=== PATIENT | male | born 1995 | race Caucasian/White ===

== ENCOUNTER 2017-03-20 17:22 | Emergency (ER) | payer OTHER ==
--- NOTE | 2017-03-20 18:43 | ED NURSING NOTES ---
Clinical Report - Nurses [facility] [address] [place] [address] 03/20/2017 17:23 Patient: STEWART TAYLOR TRIAGE Triage time 1714. Chief Complaint: SEIZURES (multiple episodes) and (Pt arrived having body shakes all over, but was able to answer questions as soon as they stopped, alert and oriented). Alert. No acute distress. VIRA COMA SCORE: [place] Coma Scale: 15- eyes open spontaneously (4); best verbal response- oriented x 4 (5); best motor response- obeys commands (6). --17:32 Ankita Bailon R.N. 17:15 03/20/17. BP: 111/52. HR: 78. RR: 18. O2 saturation: 98%. Temp: 98.1 F. Pain level now: 01/18. Additional comments: pt states has chronic back pain, so it's always there. --17:32 Ankita Bailon R.N. Weight: 75.2 kg stated. Height/Length: 74 inches Per Patient. BMI: 21.3. --17:30 Ankita Bailon R.N. Medications Depakote Oral 500 mg, 3x a day. --17:28 Ankita Bailon R.N. Allergies No Known Drug Allergy. --17:28 Ankita Bailon R.N. History Arrived by EMS. Historian: EMS and patient. Unaccompanied. Primary physician (Dr. Dubose at [place]). ( Pt allegedly had an argument with his girlfriend, and his other friend called 911.). This occurred just prior to arrival and today. No injuries. 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 PAST MEDICAL HX: Seizures. SOCIAL HX: Current some days light tobacco smoker (cigarette)- less than 1/2 a pack per day. Alcohol use; consumes beer occasionally. No drug use. --17:32 Ankita Bailon R.N. PROBLEMS: Back Pain. Autism. Epilepsy. --17:30 Ankita Bailon R.N. ADDITIONAL SURGERIES: no known surgeries. Interventions ID band on patient. To room. --17:32 Ankita Bailon R.N. 17:28 03/20/2017 Site #1 started prior to arrival by EMS via IV in the right antecubital space with an 20g angiocath. Saline lock flushed with 10 mL saline. --17:33 Ankita Bailon R.N. PHYSICAL ASSESSMENT 17:34 03/20/17. GENERAL / NEURO / PSYCH: Alert. Oriented X 4. Appears to be having generalized seizure activity (EMS reported seizure/body shakes lasted about 10 minutes continuously, then stopped and pt was able to talk and be alert). Decreased awareness. --17:34 Ankita Bailon R.N. NURSING PROGRESS NOTES Patient gowned. Reassurance given. Seizure precautions initiated: side rails up x4 and padded, patient in view of nurse's station and call ang in reach. Patient identifiers checked. Call light placed in reach. Bed placed in lowest position. Patient ready for evaluation- chart flagged (ERMD saw pt on arrival to ED). --17:35 Ankita Bailon R.N. <<STRICKEN ENTRY-- 17:44 03/20/2017 Started bag #1 1000 mL IV Fluids IV NS (Saline); at 999 mL/hr via site #1. Confirmed 5 rights. --17:44 Ankita Bailon R.N. --END STRIKE>> Change to Details. --17:59 Ankita Bailon R.N. 17:44 03/20/2017 Started bag #1 1000 IV Fluids IV NS (Saline); at 999 mL/hr via site #1 via IV pump. Confirmed 5 rights. --17:59 Ankita Bailon R.N. 17:47 03/20/2017 Ativan (LORazepam) IVP 1 mg given over 2 minute(s) via site #1. Confirmed 5 rights and sedative warning given to the patient. --17:47 Ankita Bailon R.N. 17:58 03/20/17. The patient is calm and resting quietly and has had no adverse reaction. --17:58 Ankita Bailon R.N. ( Blood sent to lab). --18:07 Ankita Bailon R.N. 18:06 03/20/17. BP: 97/36. HR: 65. RR: 18. O2 saturation: 96%. Pain level now: 0/10. --18:07 Ankita Bailon R.N. 18:38 03/20/17. ( Pt instructed to use urinal, and to give us a urine sample. Urinal within reach.). --18:38 Ankita Bailon R.N. 18:38 03/20/17. BP: 100/36. HR: 63. RR: 16. O2 saturation: 96%. Pain level now: 0/10. --18:39 Ankita Bailon R.N. DISPOSITION / DISCHARGE 19:07 03/20/2017 Site #1 removed upon discharge. Catheter intact. Bandage applied. --19:08 Ankita Bailon R.N. Departure time: 1851. Condition at departure: improved. No learning barriers present. Discharge instructions provided and reviewed with the patient. Reviewed referral to family practice for followup. Verbalized understanding. Written instructions provided. The patient was discharged home and accompanied by supervisor pleating. He left the Emergency Department ambulatory and via private vehicle. System Administrator driving. --19:08 Ankita Bailon R.N. 18:51 03/20/17. BP: 105/49. HR: 62. RR: 16. O2 saturation: 96%. Pain level now: 0/10. --19:08 Ankita Bailon R.N. Locked/Released at 03/20/2017 19:25 by Josiah Powers R.N.
--- NOTE | 2017-03-20 18:43 | ED CLINICAL REPORT ---
Clinical Report - Physicians/Mid Levels [facility] [address] [place] [address] 03/20/2017 17:23 Patient: STEWART TAYLOR Time Seen: 17:20. Arrived- By ambulance. Historian- patient and EMS personnel. HISTORY OF PRESENT ILLNESS Chief Complaint: SHAKING EPISODE. This occurred about 15 minutes ago. Is still seizing (Pt is flopping around on the gurney and when asked to hold still, he complies). Seizure was witnessed. Experienced repeated seizures. No loss of consciousness, focal motor activity, incontinence, apnea noted or confusion post-ictally. No speech difficulty post-ictally, weakness post-ictally, numbness post-ictally or headache post-ictally. Generalized motor activity observed. Not obtunded post-ictally. Did not lose pulse. No injuries noted. Did not recently change anticonvulsant medication or miss recent dose of anticonvulsant. Has not recently been ill. No recent sleep deprivation or alcohol recently. Pt admits to having an argument with his girlfriend just prior to the onset of his symptoms. Similar symptoms previously: Recent medical care: Not recently seen/assessed. REVIEW OF SYSTEMS No fever, chest pain, palpitations, cough or difficulty breathing. No eye irritation, sore throat, abdominal pain, nausea or diarrhea. No black stools, difficulty with urination, skin rash or bloody stools. All systems otherwise negative, except as recorded above. PAST HISTORY Seizures. Psychiatric problems. ( Primary physician (Dr. Dubose at [place])). Autism. Surgeries: No history of previous surgery. Additional Surgeries: no known surgeries. Medications: Depakote Oral 500 mg, 3x a day. Allergies: No Known Drug Allergy. SOCIAL HISTORY Smoker- current status unknown. Occasional alcohol use; consumes beer. No drug use. ADDITIONAL NOTES The nursing notes have been reviewed. PHYSICAL EXAM Vital Signs: 03/20/2017 17:15 BP: 111/52. HR: 78. RR: 18. O2 saturation: 98%. Temp: 98.1 F. Pain level now: 01/18. Appearance: Alert. Patient in severe distress. No odor of alcohol. (Upon presentation, the patient is prone on the gurney lifting his guteal area up and down from the gurney and nonrhythmically striking the gurney with both upper extremities. He is responding to commands and his breathing is rhythmic and stable). Eyes: Pupils equal, round and reactive to light. No nystagmus. Extraocular movements normal. ENT: Normal ENT inspection. TM's normal. Moist mucous membranes. Pharynx normal. Neck: Normal inspection. Neck supple. CVS: Normal heart rate and rhythm. Heart sounds normal. Pulses normal. Respiratory: No respiratory distress. Breath sounds normal. Abdomen: Soft and nontender. Back: Normal inspection. Skin: No cyanosis. Skin warm and dry. Normal skin color. No rash. Normal skin turgor. No pallor or diaphoresis. Extremities: Extremities exhibit normal ROM. No lower extremity edema. Neuro: Oriented X 3. Abnormal mood/affect. Speech normal. Cranial nerves normal (as tested). No motor deficit. No sensory deficit. Reflexes normal. LABS, X-RAYS, AND EKG Laboratory Tests: CBC w Diff: (REN: 03/20/2017 18:05) ( MsgRcvd 03/20/2017 18:18) Final results Test Result Flag Units (Reference) WHITE BLOOD COUNT 6.6 K/uL (4.5-11.5) RED BLOOD COUNT 4.80 M/uL (4.50-5.90) HEMOGLOBIN 13.7 gm/dL (13.5-17.5) HEMATOCRIT 41.3 % (41.0-53.0) MEAN CELL VOLUME 86 fL (80-100) MEAN CORPUSCULAR HGB 29 pg (26-34) MEAN CORPUSCULAR HGB CONC 33 g/dL (31-37) RED CELL DISTRIBUTION WIDTH 14.5 % (11.6-14.8) PLATELET COUNT 221 K/uL (150-400) NEUTROPHIL % 56.3 % (50-75) LYMPH % 33.3 % (25-40) MONO % 8.2 % (3-14) EOSINOPHIL % 1.8 % (0-4) BASOPHIL % 0.4 % (0-2) Valproic Acid (Depakene): (REN: 03/20/2017 18:05) ( MsgRcvd 03/20/2017 18:40) Final results Test Result Flag Units (Reference) VALPROIC ACID (DEPAKENE) 59.7 ug/mL (50.0-150.0) CMP: (REN: 03/20/2017 18:05) ( MsgRcvd 03/20/2017 18:29) Final results Test Result Flag Units (Reference) GLUCOSE 87 mg/dL (70-110) BUN 17 mg/dL (7-18) CREATININE 0.8 mg/dL (0.6-1.3) Estimated GFR >60 mL/min Estimated GFR- >60 mL/min Note: Persistent reduction over 3 months in eGFR<60 mL/min/1.73 m2 defines CKD. Patients with eGFR values>=60 mL/min/1.73 m2 may also have CKD if evidence ofpersistent proteinuria. Additional information may be foundat www.kidney.org. SODIUM 141 mmol/L (136-145) POTASSIUM 3.5 mmol/L (3.5-5.1) CHLORIDE 103 mmol/L (98-107) CARBON DIOXIDE 27 mmol/L (21-32) CALCIUM 8.5 mg/dL (8.5-10.1) TOTAL PROTEIN 6.8 g/dL (6.4-8.2) ALBUMIN 3.4 g/dL (3.3-5.0) BILIRUBIN, TOTAL 0.5 mg/dL (0.0-1.0) ALKALINE PHOSPHATASE 46 U/L (46-116) AST (SGOT) 38 H U/L (15-37) ALT (SGPT) 43 U/L (12-78) . Pulse Oximetry: 03/20/2017 17:15 O2 saturation: 98%. (FIO2 - room air). Interpretation: normal. PROGRESS AND PROCEDURES Course of Care: Normal Saline 1 liter IVPB given. Ativan 1mg IVP given. No signs of actual seizure activity now. Pt reportedly has a seizure disorder, but what I have observed is not c/w a tonic / clonic seizure. 03/20/2017 18:38 BP: 100/36. HR: 63. RR: 16. O2 saturation: 96%. Pain level now: 0/10. Patient/family counseled. Disposition: Discharged. Condition: stable and improved. CLINICAL IMPRESSION Conversion disorder with seizures symptoms. Pseudoseizure History of autism. INSTRUCTIONS Drink plenty of fluids. Do not smoke. Seek medical help to quit smoking. Warnings: Further evaluation is necessary. It is very important to follow up with a physician. SEDATIVE MEDICATION: You were given sedative medication during your visit. Do not drive or operate dangerous machinery. TAKE SEIZURE MEDICATION INSTRUCTED. GENERAL WARNINGS: Return or contact your physician immediately if your condition worsens or changes unexpectedly, if not improving as expected, or if other problems arise. Follow-up: Follow up with your doctor in two days. (Electronically signed by Raj Hickey DO 03/20/2017 20:05)
--- NOTE | 2017-03-20 18:43 | ED ORDER SUMMARY ---
..... Patient: STEWART TAYLOR OrderSheet [facility] VisitID: [id number] [address] [place] [address] 21y, M Registration Date/Time: 03/20/2017 ORDER SHEET Weight: 75.2 kg (stated) Allergies: No Known Drug Allergy GENERAL ORDERS: CBC w Diff Urgent (17:03/20/2017 [facility]) (Ack 17:31 TBergley) (18:08 LSullivan R.N.) CMP Urgent (17:03/20/2017 [facility]) (Ack 17:31 TBergley) (18:08 LSullivan R.N.) UA-Culture if indicated Urgent (:03/20/2017 [facility]) (Ack 17:31 TBergley) (Cancelled: Physician Order19:12 LSullivan R.N.) Urine Drug Screen Urgent (17:03/20/2017 [facility]) (Ack 17:31 TBergley) (Cancelled: Physician Order19:12 LSullivan R.N.) Valproic Acid (Depakene) Urgent (17:03/20/2017 [facility]) (Ack 17:43 RKaruga) (18:08 LSullivan R.N.) MEDICATION ORDERS: IV FLUIDS: IV NS : initial bolus 1000 mL (1000 mL/hr), then 500 mL/hr for X1 (NOW) (17:03/20/2017 [facility]) (17:44 LSullivan R.N.) Ativan IV 1 mg (HIGH ALERT MEDICATION, NOW) (17:03/20/2017 [facility]) (17:47 LSullivan R.N.) ORDER SHEET NOTES: [Electronically signed by Josiah Powers R.N. (19:03/20/2017)] [Electronically signed by Raj Hickey DO (20:05 03/20/2017)] [Electronically locked/signed by Josiah Powers R.N. (:03/20/2017)]
--- NOTE | 2017-03-20 18:43 | ED NURSING NOTES ---
Clinical Report - Nurses [facility] [address] [place] [address] 03/20/2017 17:23 Patient: STEWART TAYLOR TRIAGE Triage time 1714. Chief Complaint: SEIZURES (multiple episodes) and (Pt arrived having body shakes all over, but was able to answer questions as soon as they stopped, alert and oriented). Alert. No acute distress. VIRA COMA SCORE: [place] Coma Scale: 15- eyes open spontaneously (4); best verbal response- oriented x 4 (5); best motor response- obeys commands (6). --17:32 Ankita Bailon R.N. 17:15 03/20/17. BP: 111/52. HR: 78. RR: 18. O2 saturation: 98%. Temp: 98.1 F. Pain level now: 01/18. Additional comments: pt states has chronic back pain, so it's always there. --17:32 Ankita Bailon R.N. Weight: 75.2 kg stated. Height/Length: 74 inches Per Patient. BMI: 21.3. --17:30 Ankita Bailon R.N. Medications Depakote Oral 500 mg, 3x a day. --17:28 Ankita Bailon R.N. Allergies No Known Drug Allergy. --17:28 Ankita Bailon R.N. History Arrived by EMS. Historian: EMS and patient. Unaccompanied. Primary physician (Dr. Dubose at [place]). ( Pt allegedly had an argument with his girlfriend, and his other friend called 911.). This occurred just prior to arrival and today. No injuries. 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 PAST MEDICAL HX: Seizures. SOCIAL HX: Current some days light tobacco smoker (cigarette)- less than 1/2 a pack per day. Alcohol use; consumes beer occasionally. No drug use. --17:32 Ankita Bailon R.N. PROBLEMS: Back Pain. Autism. Epilepsy. --17:30 Ankita Bailon R.N. ADDITIONAL SURGERIES: no known surgeries. Interventions ID band on patient. To room. --17:32 Ankita Bailon R.N. 17:28 03/20/2017 Site #1 started prior to arrival by EMS via IV in the right antecubital space with an 20g angiocath. Saline lock flushed with 10 mL saline. --17:33 Ankita Bailon R.N. PHYSICAL ASSESSMENT 17:34 03/20/17. GENERAL / NEURO / PSYCH: Alert. Oriented X 4. Appears to be having generalized seizure activity (EMS reported seizure/body shakes lasted about 10 minutes continuously, then stopped and pt was able to talk and be alert). Decreased awareness. --17:34 Ankita Bailon R.N. NURSING PROGRESS NOTES Patient gowned. Reassurance given. Seizure precautions initiated: side rails up x4 and padded, patient in view of nurse's station and call ang in reach. Patient identifiers checked. Call light placed in reach. Bed placed in lowest position. Patient ready for evaluation- chart flagged (ERMD saw pt on arrival to ED). --17:35 Ankita Bailon R.N. <<STRICKEN ENTRY-- 17:44 03/20/2017 Started bag #1 1000 mL IV Fluids IV NS (Saline); at 999 mL/hr via site #1. Confirmed 5 rights. --17:44 Ankita Bailon R.N. --END STRIKE>> Change to Details. --17:59 Ankita Bailon R.N. 17:44 03/20/2017 Started bag #1 1000 IV Fluids IV NS (Saline); at 999 mL/hr via site #1 via IV pump. Confirmed 5 rights. --17:59 Ankita Bailon R.N. 17:47 03/20/2017 Ativan (LORazepam) IVP 1 mg given over 2 minute(s) via site #1. Confirmed 5 rights and sedative warning given to the patient. --17:47 Ankita Bailon R.N. 17:58 03/20/17. The patient is calm and resting quietly and has had no adverse reaction. --17:58 Ankita Bailon R.N. ( Blood sent to lab). --18:07 Ankita Bailon R.N. 18:06 03/20/17. BP: 97/36. HR: 65. RR: 18. O2 saturation: 96%. Pain level now: 0/10. --18:07 Ankita Bailon R.N. 18:38 03/20/17. ( Pt instructed to use urinal, and to give us a urine sample. Urinal within reach.). --18:38 Ankita Bailon R.N. 18:38 03/20/17. BP: 100/36. HR: 63. RR: 16. O2 saturation: 96%. Pain level now: 0/10. --18:39 Ankita Bailon R.N. DISPOSITION / DISCHARGE 19:07 03/20/2017 Site #1 removed upon discharge. Catheter intact. Bandage applied. --19:08 Ankita Bailon R.N. Departure time: 1851. Condition at departure: improved. No learning barriers present. Discharge instructions provided and reviewed with the patient. Reviewed referral to family practice for followup. Verbalized understanding. Written instructions provided. The patient was discharged home and accompanied by lab systems analyst. He left the Emergency Department ambulatory and via private vehicle. Auto Camp Attendant driving. --19:08 Ankita Bailon R.N. 18:51 03/20/17. BP: 105/49. HR: 62. RR: 16. O2 saturation: 96%. Pain level now: 0/10. --19:08 Ankita Bailon R.N. Locked/Released at 03/20/2017 19:25 by Josiah Powers R.N.
--- NOTE | 2017-03-20 18:43 | ED ORDER SUMMARY ---
..... Patient: STEWART TAYLOR OrderSheet [facility] VisitID: [id number] [address] [place] [address] 21y, M Registration Date/Time: 03/20/2017 ORDER SHEET Weight: 75.2 kg (stated) Allergies: No Known Drug Allergy GENERAL ORDERS: CBC w Diff Urgent (17:03/20/2017 [facility]) (Ack 17:31 TBergley) (18:08 LSullivan R.N.) CMP Urgent (17:03/20/2017 [facility]) (Ack 17:31 TBergley) (18:08 LSullivan R.N.) UA-Culture if indicated Urgent (:03/20/2017 [facility]) (Ack 17:31 TBergley) (Cancelled: Physician Order19:12 LSullivan R.N.) Urine Drug Screen Urgent (17:03/20/2017 [facility]) (Ack 17:31 TBergley) (Cancelled: Physician Order19:12 LSullivan R.N.) Valproic Acid (Depakene) Urgent (17:03/20/2017 [facility]) (Ack 17:43 RKaruga) (18:08 LSullivan R.N.) MEDICATION ORDERS: IV FLUIDS: IV NS : initial bolus 1000 mL (1000 mL/hr), then 500 mL/hr for X1 (NOW) (17:03/20/2017 [facility]) (17:44 LSullivan R.N.) Ativan IV 1 mg (HIGH ALERT MEDICATION, NOW) (17:03/20/2017 [facility]) (17:47 LSullivan R.N.) ORDER SHEET NOTES: [Electronically signed by Josiah Powers R.N. (19:03/20/2017)] [Electronically signed by Raj Hickey DO (20:05 03/20/2017)] [Electronically locked/signed by Josiah Powers R.N. (:03/20/2017)]
--- NOTE | 2017-03-20 20:05 | ED DISCHARGE INSTRUCTIONS ---
Patient: STEWART TAYLOR General Instructions [facility] VisitID: [id number] [place] [address] 21y, M Registration Date/Time: 03/20/2017 Conversion disorder with seizures symptoms. Pseudoseizure History of autism. INSTRUCTIONS Drink plenty of fluids. Do not smoke. Seek medical help to quit smoking. Warnings: Further evaluation is necessary. It is very important to follow up with a physician. SEDATIVE MEDICATION: You were given sedative medication during your visit. Do not drive or operate dangerous machinery. TAKE SEIZURE MEDICATION INSTRUCTED. GENERAL WARNINGS: Return or contact your physician immediately if your condition worsens or changes unexpectedly, if not improving as expected, or if other problems arise. Follow-up: Follow up with your doctor in two days. ADDITIONAL INFORMATION How To Quit Smoking Smoking is one of the hardest habits to break. About half of all those who have ever smoked have been able to quit, and most of those (about 70%) who still smoke want to quit. Here are some of the best ways to stop smoking. Keep Trying: It takes most smokers about 8 tries before they are finally able to fully quit. So, the more often you try and fail, the better your chance of quitting the next time! So, don't give up! Go Cold Angora: Most ex-smokers quit cold turkey. Trying to cut back gradually doesn't seem to work as well, perhaps because it continues the smoking habit. Also, it is possible to fool yourself by inhaling more while smoking fewer cigarettes. This results in the same amount of nicotine in your body! Get Support: Support programs can make an important difference, especially for the heavy smoker. These groups offer lectures, methods to change your behavior and peer support. Call the free national Quitline for more information. 280-LDLB-YYV (580-973-9871). Low-cost or free programs are offered by many hospitals, local chapters of the [place] [employer] (639-090-0714) and the [place] [employer] (960-213-7427). Support at home is important too. Non-smokers can help by offering praise and encouragement. If the smoker fails to quit, encourage them to try again! Phqv-Qdy-Qfffpyv Medicines: For those who can't quit on their own, Nicotine Replacement Therapy (NRT) may make quitting much easier. Certain aids such as the nicotine patch, gum and lozenge are available without a prescription. However, it is best to use these under the guidance of your doctor. The skin patch provides a steady supply of nicotine to the body. Nicotine gum and lozenge gives temporary bursts of low levels of nicotine. Both methods take the edge off the craving for cigarettes. WARNING: If you feel symptoms of nicotine overdose, such as nausea, vomiting, dizziness, weakness, or fast heartbeat, stop using these and see your doctor. Prescription Medicines: After evaluating your smoking patterns and prior attempts at quitting, your doctor may offer a prescription medicine such as bupropion (Zyban, Wellbutrin), varenicline (Chantix, Champix), a niocotine inhaler or nasal spray. Each has its unique advantage and side effects which your doctor can review with you. Health Benefits Of Quitting: The benefits of quitting start right away and keep improving the longer you go without smokin minutes: blood pressure and pulse return to normal 8 hours: oxygen levels return to normal 2 days: ability to smell and taste begins to improve as damaged nerves start to regrow 2-3 weeks: circulation and lung function improves 1-9 months: decreased cough, congestion and shortness of breath; less tired 1 year: risk of heart attack decreases by half 5 years: risk of lung cancer decreases by half; risk of stroke becomes the same as a non-smoker For information about how to quit smoking, visit the following links: National [employer] [place] , Clearing the Air, Quit Smoking Today - an online booklet. http://www.smokefree.gov/pubs/clearing_the_air.pdf Smokefree.gov http://smokefree.gov/ QuitNet http://www.quitnet.com/ You have been given the following additional information: Smoking Cessation (Electronically signed by Raj Hickey DO 03/20/2017 20:05)
--- NOTE | 2017-03-20 20:05 | ED MAR SUMMARY ---
..... Medication Administration Record [facility] [address] [place] [address] Patient: STEWART TAYLOR Visit ID: [id number] 21y, M Weight: 75.2 kg Height/Length: 74 in BMI: 21.3 ALLERGIES: No Known Drug Allergy Start 17:44 03/20/2017 Ankita Bailon RJimmy Medication Administered: IV NS (SALINE), Dose: IV Fluids, Rate: 999 mL/hr, Dispensed: 1000 mL bag, Site: #1 right AC. Medication Ordered: IV NS : initial bolus 1000 mL (1000 mL/hr), then 500 mL/hr for X1 (NOW). Given 17:47 03/20/2017 Ankita Bailon RJimmy Medication Administered: ATIVAN [IVP] (LORAZEPAM), Dose: 1 mg IVP over 2 minute(s), Site: #1 right AC. Medication Ordered: Ativan IV 1 mg (HIGH ALERT MEDICATION, NOW).
--- NOTE | 2017-03-20 20:05 | ED MED RECONCILIATION SUMMARY ---
Patient: STEWART TAYLOR Medication Reconciliation Report [facility] VisitID: [id number] [address] [place] [address] 21y, M Registration Date/Time: 03/20/2017 Weight: 75.2 kg Height/Length: 74 in. BMI: 21.3 ALLERGIES: No Known Drug Allergy The patient's Home Medications are listed below: THE FOLLOWING MEDICATIONS NEED TO BE RECONCILED: Depakote Oral 500 mg, 3x a day The source(s) of the original Home Medication information: Not obtained. The following Medications were given to the patient in the Emergency Department: IV NS IV Fluids bolus 0, then 999 mL/hr, administered: 03/20/2017 5:44:00 PM Ativan [IVP] IVP 1 mg, administered: 03/20/2017 5:47:00 PM The following Medications were prescribed to the patient: None.
--- NOTE | 2017-03-20 20:05 | ED MED RECONCILIATION SUMMARY ---
Patient: STEWART TAYLOR Medication Reconciliation Report [facility] VisitID: [id number] [address] [place] [address] 21y, M Registration Date/Time: 03/20/2017 Weight: 75.2 kg Height/Length: 74 in. BMI: 21.3 ALLERGIES: No Known Drug Allergy The patient's Home Medications are listed below: THE FOLLOWING MEDICATIONS NEED TO BE RECONCILED: Depakote Oral 500 mg, 3x a day The source(s) of the original Home Medication information: Not obtained. The following Medications were given to the patient in the Emergency Department: IV NS IV Fluids bolus 0, then 999 mL/hr, administered: 03/20/2017 5:44:00 PM Ativan [IVP] IVP 1 mg, administered: 03/20/2017 5:47:00 PM The following Medications were prescribed to the patient: None.
--- NOTE | 2017-03-20 20:05 | ED MAR SUMMARY ---
..... Medication Administration Record [facility] [address] [place] [address] Patient: STEWART TAYLOR Visit ID: [id number] 21y, M Weight: 75.2 kg Height/Length: 74 in BMI: 21.3 ALLERGIES: No Known Drug Allergy Start 17:44 03/20/2017 Ankita Bailon RJimmy Medication Administered: IV NS (SALINE), Dose: IV Fluids, Rate: 999 mL/hr, Dispensed: 1000 mL bag, Site: #1 right AC. Medication Ordered: IV NS : initial bolus 1000 mL (1000 mL/hr), then 500 mL/hr for X1 (NOW). Given 17:47 03/20/2017 Ankita Bailon RJimmy Medication Administered: ATIVAN [IVP] (LORAZEPAM), Dose: 1 mg IVP over 2 minute(s), Site: #1 right AC. Medication Ordered: Ativan IV 1 mg (HIGH ALERT MEDICATION, NOW).
--- NOTE | 2017-03-20 20:05 | ED DISCHARGE INSTRUCTIONS ---
Patient: STEWART TAYLOR General Instructions [facility] VisitID: [id number] [place] [address] 21y, M Registration Date/Time: 03/20/2017 Conversion disorder with seizures symptoms. Pseudoseizure History of autism. INSTRUCTIONS Drink plenty of fluids. Do not smoke. Seek medical help to quit smoking. Warnings: Further evaluation is necessary. It is very important to follow up with a physician. SEDATIVE MEDICATION: You were given sedative medication during your visit. Do not drive or operate dangerous machinery. TAKE SEIZURE MEDICATION INSTRUCTED. GENERAL WARNINGS: Return or contact your physician immediately if your condition worsens or changes unexpectedly, if not improving as expected, or if other problems arise. Follow-up: Follow up with your doctor in two days. ADDITIONAL INFORMATION How To Quit Smoking Smoking is one of the hardest habits to break. About half of all those who have ever smoked have been able to quit, and most of those (about 70%) who still smoke want to quit. Here are some of the best ways to stop smoking. Keep Trying: It takes most smokers about 8 tries before they are finally able to fully quit. So, the more often you try and fail, the better your chance of quitting the next time! So, don't give up! Go Cold Chicken: Most ex-smokers quit cold turkey. Trying to cut back gradually doesn't seem to work as well, perhaps because it continues the smoking habit. Also, it is possible to fool yourself by inhaling more while smoking fewer cigarettes. This results in the same amount of nicotine in your body! Get Support: Support programs can make an important difference, especially for the heavy smoker. These groups offer lectures, methods to change your behavior and peer support. Call the free national Quitline for more information. 923-XLGH-BYE (451-670-7463). Low-cost or free programs are offered by many hospitals, local chapters of the [place] [employer] (967-165-7583) and the [place] [employer] (121-179-3726). Support at home is important too. Non-smokers can help by offering praise and encouragement. If the smoker fails to quit, encourage them to try again! [id number]-[id number] Medicines: For those who can't quit on their own, Nicotine Replacement Therapy (NRT) may make quitting much easier. Certain aids such as the nicotine patch, gum and lozenge are available without a prescription. However, it is best to use these under the guidance of your doctor. The skin patch provides a steady supply of nicotine to the body. Nicotine gum and lozenge gives temporary bursts of low levels of nicotine. Both methods take the edge off the craving for cigarettes. WARNING: If you feel symptoms of nicotine overdose, such as nausea, vomiting, dizziness, weakness, or fast heartbeat, stop using these and see your doctor. Prescription Medicines: After evaluating your smoking patterns and prior attempts at quitting, your doctor may offer a prescription medicine such as bupropion (Zyban, Wellbutrin), varenicline (Chantix, Champix), a niocotine inhaler or nasal spray. Each has its unique advantage and side effects which your doctor can review with you. Health Benefits Of Quitting: The benefits of quitting start right away and keep improving the longer you go without smokin minutes: blood pressure and pulse return to normal 8 hours: oxygen levels return to normal 2 days: ability to smell and taste begins to improve as damaged nerves start to regrow 2-3 weeks: circulation and lung function improves 1-9 months: decreased cough, congestion and shortness of breath; less tired 1 year: risk of heart attack decreases by half 5 years: risk of lung cancer decreases by half; risk of stroke becomes the same as a non-smoker For information about how to quit smoking, visit the following links: National [employer] [place] , Clearing the Air, Quit Smoking Today - an online booklet. http://www.smokefree.gov/pubs/clearing_the_air.pdf Smokefree.gov http://smokefree.gov/ QuitNet http://www.quitnet.com/ You have been given the following additional information: Smoking Cessation (Electronically signed by Raj Hickey DO 03/20/2017 20:05)
== END 2017-03-20 18:52 | disposition home or self-care (01) ==
LOC: ED SRH 17:22
DX: F44.5 Conversion disorder with seizures or convulsions (principal); F84.0 Autistic disorder; Z79.899 Other long term (current) drug therapy; Z72.0 Tobacco use
CPT/HCPCS: 90100; 91285; 95059